=== PATIENT | male | born 1950 | race Caucasian/White ===

== ENCOUNTER → 2018-02-27 | Outpatient (CLI) | payer MEDICARE, OTHER ==
[~2018-02-27] MED LIST: CYCL0.05OP BOTHEYES; FOLI1 PO; PRED5 PO; Trexall15 MG PO
== END | disposition home or self-care (01) ==
LOC: LAB SHORT 14:44 → PLD 14:44
DX: D48.5 Neoplasm of uncertain behavior of skin (principal)
CPT/HCPCS: 88305

== ENCOUNTER → 2020-07-20 | Outpatient (CLI) | payer MEDICARE, OTHER ==
[~2020-07-20] MED LIST changes: +Vibramycin100 MG PO
== END | disposition home or self-care (01) ==
LOC: PLD 12:14 → LAB SHORT 12:14
DX: D48.5 Neoplasm of uncertain behavior of skin (principal)
CPT/HCPCS: 88305

== ENCOUNTER → 2021-03-17 | Outpatient (CLI) | payer MEDICARE | END | disposition home or self-care (01) | LOC: LAB SHORT 09:27 → LAB 09:27 | DX: L57.0 Actinic keratosis (principal); B88.9 Infestation, unspecified | CPT/HCPCS: 88305 ==

== ENCOUNTER 2021-08-13 15:45 | Emergency (ER) | payer MEDICARE ==
[~2021-08-13] VITALS: Ht 165.1 cm; Wt 59.0 kg
== END 2021-08-13 19:48 ==
LOC: ER 15:45
DX: I46.9 Cardiac arrest, cause unspecified (principal); F17.200 Nicotine dependence, unspecified, uncomplicated; Z88.0 Allergy status to penicillin